=== PATIENT | male | born 1970 | race Caucasian/White ===

== ENCOUNTER 2019-01-05 08:02 | Day surgery (SDC) | payer BC ==
[2019-01-01 10:25] VITALS: BMI 34.0
[~2019-01-05 08:02] MED LIST: LACTATED RINGERS 1,000 ML IV SCH; LIDOCAINE 1% 20 ML VIAL (10MG/ML) FOR IV START INTRADERMA PRN
[2019-01-05] MEDS ORDERED: LACTATED RINGERS 1,000 ML IV ONE (08:45)
--- NOTE | 2019-01-05 08:51 | P.GSHP ---
History of Present Illness H&P Date: 01/05/19 Chief Complaint: GERD This a 48-year-old male with a safer EGD. He's had issues with GERD. Past Medical History Past Medical History: GERD/Reflux History of Any Multi-Drug Resistant Organisms: None Reported Additional Past Surgical History / Comment(s): colonoscopy,vascectomy Past Anesthesia/Blood Transfusion Reactions: No Reported Reaction Smoking Status: Never smoker - Past Family History Mother Family Medical History: No Reported History Father Family Medical History: Cancer Additional Family Medical History / Comment(s): lung Medications and Allergies Home Medications Medication Instructions Recorded Confirmed Type No Known Home Medications 01/01/19 01/05/19 History Allergies Allergy/AdvReac Type Severity Reaction Status Date / Time No Known Allergies Allergy Verified 01/05/19 08:35 Surgical - Exam - General well developed, well nourished, no distress - Eyes PERRL - ENT normal pinna - Neck no masses - Respiratory normal expansion - Cardiovascular Rhythm: regular - Abdomen Abdomen: soft, non tender Assessment and Plan Assessment: GERD. We'll perform EGD.
[2019-01-05 08:52] VITALS: TEMP 97.2
[2019-01-05] MEDS ORDERED: PROPOFOL 10 MG/ML 20 ML VIAL IV ONE (08:56)
--- NOTE | 2019-01-05 09:04 | P.OP ---
Date of Procedure: 01/05/19 Preoperative Diagnosis: GERD Postoperative Diagnosis: Antral gastritis Sliding hiatal hernia Esophagitis Procedure(s) Performed: EGD Anesthesia: MAC Surgeon: Corwin Cartwright Pathology: other (Antrum, esophagus) Condition: stable Disposition: PACU Description of Procedure: The patient's placed on the endoscopy table in the lateral position. He received IV sedation. The gastric was placed oropharynx passed in the esophagus and into the stomach. The scope was then placed through the pylorus. The first and second portion of the duodenum. Normal. The scope was then brought back into the antrum and this was mildly inflamed. A biopsy was performed. Scope was then retroflexed and the remainder of the stomach appeared normal. The GE junction was evaluated there was a moderate size sliding hiatal hernia. The GE junction was at 38 cm. The distal esophagus was grossly inflamed a biopsies performed. The proximal esophagus appeared normal. Scope was withdrawn for patient.
[2019-01-05 09:19] VITALS: RESP 16
[2019-01-05 09:35] VITALS: BP 138/81; PULSE 81
== END 2019-01-05 09:52 | disposition home or self-care (01) ==
LOC: ORWHC2ENDO 08:02
PROVIDERS: ATTEND Surgery
DX: K21.0 Gastro-esophageal reflux disease with esophagitis (principal); K29.50 Unspecified chronic gastritis without bleeding; K44.9 Diaphragmatic hernia without obstruction or gangrene; Z80.1 Family history of malignant neoplasm of trachea, bronchus and lung
CPT/HCPCS: 88305; 43239; J2704

== ENCOUNTER → 2019-01-27 | Outpatient (CLI) | payer BC | LOC: LABWHC1 17:00 | PROVIDERS: ATTEND Surgery | DX: Z01.812 Encounter for preprocedural laboratory examination (principal); K21.0 Gastro-esophageal reflux disease with esophagitis | CPT/HCPCS: 86850; 86900; 86901 ==

== ENCOUNTER 2019-02-03 09:08 | Inpatient (IN) | payer BC ==
[2019-01-26 15:36] VITALS: BMI 33.6
[~2019-02-03 09:08] MED LIST changes: +DEXAMETHASONE SOD PHOSPHATE 10 MG/ML 1 ML VIAL IV ONE; +HEPARIN SODIUM,PORCINE 5,000 UNIT/ML 1 ML VIAL SQ ONE; -LACTATED RINGERS 1,000 ML IV SCH; +MIDAZOLAM 2 MG/2 ML VIAL IV PRN; +ONDANSETRON 4 MG/2 ML VIAL IVP ONE; +SCOPOLAMINE 1.5MG/72HR PATCH TRANSDERM ONE; +ceFAZolin IN SWFI 2 GM/20 ML SYRINGE IVP ONE
[2019-02-03] MEDS: LACTATED RINGERS 1,000 ML IV SCH (10:10)
--- NOTE | 2019-02-03 10:53 | P.GSHP ---
History of Present Illness H&P Date: 02/03/19 Chief Complaint: GERD This a 48-year-old male with a history of GERD.The patient has had long-standing problems with reflux esophagitis. The patient underwent recent EGD is found have evidence of esophagitis. Patient has been well informed on the procedure of laparoscopic Judah fundoplication. The patient is aware the risk of the conversion to the open procedure, risk of injury to the stomach, liver and spleen. The patient is also a risk of recurrent GERD and dysphagia symptoms. The patient understands there is a postoperative diet of full liquids for 2 weeks after surgery. Past Medical History Past Medical History: GERD/Reflux Additional Past Medical History / Comment(s): HIATAL HERNIA History of Any Multi-Drug Resistant Organisms: None Reported Additional Past Surgical History / Comment(s): colonoscopy,vascectomy, EGD 01/05/19 Past Anesthesia/Blood Transfusion Reactions: No Reported Reaction Smoking Status: Never smoker - Past Family History Mother Family Medical History: No Reported History Father Family Medical History: Cancer Additional Family Medical History / Comment(s): lung Medications and Allergies Home Medications Medication Instructions Recorded Confirmed Type Omeprazole 40 mg PO DAILY #60 capsule. 01/05/19 02/03/19 Rx Allergies Allergy/AdvReac Type Severity Reaction Status Date / Time No Known Allergies Allergy Verified 01/26/19 15:28 Surgical - Exam Vital Signs Temp Pulse Resp BP Pulse Ox 98.0 F 70 18 129/75 98 02/03/19 09:52 02/03/19 09:52 02/03/19 09:52 02/03/19 09:52 02/03/19 09:52 - General well developed, well nourished, no distress - Eyes PERRL - ENT normal pinna - Neck no masses - Respiratory normal expansion - Cardiovascular Rhythm: regular - Abdomen Abdomen: soft, non tender Assessment and Plan Assessment: GERD. We'll perform laparoscopic Judah fundal plication.
[2019-02-03] MEDS ORDERED: NEOSTIGMINE 1 MG/ML 10 ML VIAL ONE (11:10)
[2019-02-03] MEDS ORDERED: SUCCINYLCHOLINE CHLORIDE 100 MG/5 ML SYR IV ONE (11:10)
[2019-02-03] MEDS ORDERED: MIDAZOLAM 2 MG/2 ML VIAL ONE (11:10)
[2019-02-03] MEDS ORDERED: PROPOFOL 10 MG/ML 20 ML VIAL IV ONE (11:10)
[2019-02-03] MEDS ORDERED: fentaNYL (PF) 50 MCG/ML 2 ML AMP ONE (11:10)
[2019-02-03] MEDS ORDERED: GLYCOPYRROLATE 0.2 MG/ML 2 ML VIAL ONE (11:10)
[2019-02-03] MEDS ORDERED: KETOROLAC 30 MG/ML 1 ML VIAL ONE (11:10)
[2019-02-03] MEDS ORDERED: LIDOCAINE 1% INJ 10MG/ML (20 ML MDV) ONE (11:10)
[2019-02-03] MEDS ORDERED: ROCURONIUM BROMIDE 10 MG/ML 10 ML VIAL IV ONE (11:10)
[2019-02-03] MEDS ORDERED: BUPIVACAINE (PF) 0.5% 30 ML VIAL SQ ONE (11:30)
[2019-02-03] MEDS ORDERED: LACTATED RINGERS 1,000 ML IV ONE (12:11)
[2019-02-03] MEDS ORDERED: ONDANSETRON 4 MG/2 ML VIAL IVP PRN (13:13)
--- NOTE | 2019-02-03 13:13 | P.OP ---
Date of Procedure: 02/03/19 Preoperative Diagnosis: GERD Postoperative Diagnosis: GERD Procedure(s) Performed: Laparoscopic Judah fundoplication Anesthesia: LETICIA Surgeon: Corwin Cartwright Estimated Blood Loss (ml): 5 Pathology: other Condition: stable Disposition: PACU Description of Procedure: HThe patient was placed on the operating table in the supine position. The patient received general anesthesia. And was placed in dorsal lithotomy position. The patient was prepped and draped in the usual sterile fashion. The patient was noted to have an umbilical hernia. The skin incision sites were anesthetized with 1% local Xylocaine. The skin was incised in the left periumbilical area and then using a blade less 5 mm trocar under direct visualization panel cavity was entered. After adequate insufflation the laparoscope was then placed into the peritoneal cavity. Next a 5 mm trochars placed in the right epigastric position. Another 5 millimeter trocar the right lateral position. Another 5 millimeter trocar in the left lateral position a 5 mm trocar is placed in the left epigastric position. And then the initial 5 mm trocar was exchanged for a 10 mm trocar. The left lateral lobe liver was retracted. The hernia was seen. The crural defect was then dissected using the Harmonic scissors device. A 360 crural dissection was performed the esophagus stomach was reduced back into the peritoneal Cavity. The crural defect was then closed using 2-0 Ethibond suture. Next the fundus of the stomach was mobilized using the Nikolski scissors device. and then a 58-Monegasque bougie dilator was placed oropharynx passed into the esophagus and stomach the fundal plication wrap was then performed by grasping the fundus posteriorly and bringing it around the esophagus and stomach fundoplication was then performed using 2-0 Ethibond suture. Care was taken that the fundal location rested over top of the intra-abdominal esophagus. There was no injury seen to the stomach or esophagus. The dilator was then withdrawn. The abdomen was irrigated there is no bleeding seen. The trochars were then withdrawn and then skin incision sites were closed using 3-0 Monocryl suture Steri-Strips are applied. Patient thought procedure well and sent to recovery room in stable condition.
[2019-02-03] MEDS: HYDROmorphone 0.5 MG/0.5 ML SYRINGE IVP PRN ×2 (13:32→13:42)
--- NOTE | 2019-02-03 15:24 | FL ---
Single contrast esophagram EXAMINATION TYPE: FL esophagus cervic/pharynx DATE OF EXAM: 02/03/2019 3:19 PM COMPARISON: NONE CLINICAL HISTORY: Status post Miguel fundoplication Post OP Judah. 19 secs fluoro. 50ml of Isovue 370 given orally. The patient ingested contrast without difficulty or delay. Noted are changes of Miguel fundoplicatio n. There is no evidence for leak or obstruction. Small amount of residual contrast within the distal esophagus. IMPRESSION: Post-surgical change of Miguel fundoplication without evidence for leak or obstruction.
[2019-02-03] MEDS ORDERED: LORazepam 2 MG/ML INJ IV PRN (15:45)
[2019-02-03] MEDS ORDERED: cloNIDine HCL 0.1 MG TAB PO PRN (15:46)
[2019-02-03] MEDS ORDERED: hydrALAZINE HCL 20 MG/ML 1 ML VIAL IVP PRN (15:46)
[2019-02-03] MEDS: D5-0.45% NACL WITH KCL 20MEQ/L 1,000 ML IV SCH ×2 (16:01→23:52)
[2019-02-03] MEDS: PANTOPRAZOLE 40 MG/10 ML VIAL IVP SCH ×2 (16:01→21:30)
[2019-02-03 16:59] LABS: Albumin 4.2 g/dL (3.5-5.0); Calcium 9.5 mg/dL (8.4-10.2); Potassium 4.6 mmol/L (3.5-5.1); Total Bilirubin 1.1 mg/dL (0.2-1.3); Total Protein 6.8 g/dL (6.3-8.2)
--- NOTE | 2019-02-03 17:15 | CONS ---
CONSULTATION DATE OF SERVICE: 02/03/2019 REASON FOR CONSULTATION: Advice regarding hypertension and other medical issues, requested by Dr. Cartwright. HISTORY OF PRESENT ILLNESS: This 48-year-old gentleman with a past medical history of multiple medical problems, including GERD, DJD, hiatal hernia, colonoscopy, vasectomy, being followed by Dr. Rod Meyers in the outpatient setting, underwent laparoscopic Judah fundoplication for GERD by Dr. Cartwright. Postoperatively the patient is complaining of some gasping sensation in the upper chest. He has elevated blood pressure also. There is no history of any fever, rigor or chills. No history of headache, loss of consciousness, seizures. PAST MEDICAL HISTORY: 1. GERD. 2. DJD. 3. Hiatal hernia. HOME MEDICATIONS: Omeprazole 40 mg daily. ALLERGIES: NONE. FAMILY HISTORY: History of lung disease in the family. SOCIAL HISTORY: Alcohol, especially on the weekends. No history of smoking. REVIEW OF SYSTEMS: ENT: No diminished hearing. No diminished vision. CARDIOVASCULAR SYSTEM: As mentioned earlier. RESPIRATORY SYSTEM: As mentioned earlier. GI: As mentioned earlier. : No dysuria or retention. NERVOUS SYSTEM: No numbness, weakness. ALLERGY/IMMUNOLOGY: No asthma, hayfever. MUSCULOSKELETAL: As mentioned earlier. HEMATOLOGY/ONCOLOGY: No history of anemia. ENDOCRINE: No history of diabetes, hypothyroidism. CONSTITUTIONAL: As mentioned earlier. DERMATOLOGY: Negative. RHEUMATOLOGY: Negative. PSYCHIATRY: As mentioned earlier. PHYSICAL EXAMINATION: Patient is alert and oriented x3. Pulse 75, blood pressure 155/106, respiration 20, temperature 98 degrees, pulse ox 94% on room air. HEENT: Conjunctivae normal. Oral mucosa moist. NECK: No jugular venous distention. No carotid bruit. No lymph node enlargement. CARDIOVASCULAR SYSTEM: S1, S2 muffled. RESPIRATORY SYSTEM: Breath sounds diminished at the bases. No rhonchi. No crackles. ABDOMEN: Soft. Status post surgery. No guarding. No rigidity. No mass palpable. LEGS: No edema. No swelling. NERVOUS SYSTEM: Higher functions as mentioned earlier. Moves all 4 limbs. No focal motor or sensory deficit. LYMPHATICS: No lymph node palpable in neck, axillae or groin. SKIN: No ulcer, rash, bleeding. JOINTS: No active deforming arthropathy. LABS: Not available. ASSESSMENT: 1. Gastroesophageal reflux disease, status post laparoscopic Judah fundoplication. 2. Hypertension. 3. History of degenerative joint disease. 4. History of hiatal hernia. 5. History of ETOH weekends. 6. History of colonoscopy. 7. History of vasectomy. 8. History of esophagogastroduodenoscopy. RECOMMENDATIONS AND DISCUSSION: In this 48-year-old gentleman who presented with multiple medical issues, at this time I recommend to continue current management, continue with symptomatic treatment. I would recommend incentive spirometry, DVT prophylaxis. I would also recommend p.r.n. clonidine and hydralazine. Otherwise, IV Protonix. Will follow the patient closely. I recommend follow-up labs also. The patient may be asked to follow up with Dr. Meyers closely. Thank you, Dr. Cartwright, for letting us participate in the care of this patient. MMNILOL / BENEDICTON: [id number] /
[2019-02-03] MEDS: FAMOTIDINE 20 MG/2 ML VIAL IV SCH (20:22)
[2019-02-03] MEDS: HYDROmorphone 1 MG/ML 1 ML SYRINGE IVP PRN (20:27)
[2019-02-04] MEDS: HYDROmorphone 1 MG/ML 1 ML SYRINGE IVP PRN ×3 (00:48→08:50)
[2019-02-04 01:28] VITALS: TEMP 98.1
[2019-02-04] MEDS: LACTATED RINGERS 1,000 ML IV SCH (01:57)
[2019-02-04] MEDS: D5-0.45% NACL WITH KCL 20MEQ/L 1,000 ML IV SCH (05:00)
[2019-02-04 07:44] VITALS: BP 127/86; PULSE 69; RESP 14
[2019-02-04 08:27] LABS: ALT 80 U/L (21-72); AST 55 U/L (17-59); Alkaline Phosphatase 41 U/L (38-126); Anion Gap 10 mmol/L; Blood Urea Nitrogen 17 mg/dL (9-20); Calcium 8.9 mg/dL (8.4-10.2); Carbon Dioxide 25 mmol/L (22-30); Chloride 103 mmol/L (98-107); Glucose 122 mg/dL (74-99); Potassium 4.4 mmol/L (3.5-5.1); Sodium 138 mmol/L (137-145); Total Bilirubin 1.4 mg/dL (0.2-1.3); Total Protein 6.6 g/dL (6.3-8.2)
[2019-02-04] MEDS: FAMOTIDINE 20 MG/2 ML VIAL IV SCH (08:50)
[2019-02-04 08:51] LABS: Basophils % (A) 0 %; Eosinophils % (A) 0 %; HCT 47.4 % (39.0-53.0); HGB 15.9 gm/dL (13.0-17.5); Lymphocytes # (A) 1.5 k/uL (1.0-4.8); Lymphocytes % (A) 16 %; MCH 33.1 pg (25.0-35.0); MCHC 33.6 g/dL (31.0-37.0); MCV 98.7 fL (80.0-100.0); Mean Platelet Volume 6.2; Monocytes # (A) 0.6 k/uL (0-1.0); Monocytes % (A) 7 %; Neutrophils # (A) 7.1 k/uL (1.3-7.7); Neutrophils % (A) 75 %; Platelet Count 224 k/uL (150-450); RDW 12.5 % (11.5-15.5); WBC 9.6 k/uL (3.8-10.6)
[2019-02-04] MEDS ORDERED: ENOXAPARIN 40 MG/0.4 ML SYRINGE SQ SCH (09:00)
[2019-02-04] MEDS: PANTOPRAZOLE 40 MG/10 ML VIAL IVP SCH (10:45)
[2019-02-04] MEDS ORDERED: HYDROcodone/APAP 15 ML SOLUTION PO PRN (11:09)
--- NOTE | 2019-02-04 11:33 | P.DS ---
Providers Date of admission: 02/03/19 09:08 Expected date of discharge: 02/04/19 Attending physician: Corwin Cartwright Consults: 02/03/19 13:13 Consult Physician Routine Consulting Provider: Neris Noe Consult Reason/Comments: Rohith management Do you want consulting provider notified?: Yes Primary care physician: [facility]ouse Hospital Course: 48-year-old male who underwent laparoscopic Judah fundoplication secondary to GERD. Patient is doing well postoperatively without any immediate complications. Postop esophagram completed negative for leak or obstruction. Patient is tolerating clear liquids. Patient is stable for discharge home today. He is to follow up outpatient with Dr. Cartwright. Please see EMR for further hospital course details. Discharge diagnosis 1. GERD status post Judah fundoplication The above dictated assessment and findings were discussed with Dr. Cartwright. The impression and plan of care have been directed as dictated. Kathi Soria, nurse practitioner, acting as scribe for Dr. Cartwright. Patient Condition at Discharge: Stable Plan - Discharge Summary Discharge Rx Participant: No New Discharge Prescriptions: New HYDROcodone/APAP [[place] Elixir 7.5-325Mg/15Ml] 15 ml PO Q6HR PRN 3 Days #180 ml PRN Reason: Pain No Action Omeprazole 40 mg PO DAILY #60 capsule. Discharge Medication List Omeprazole 40 mg PO DAILY #60 capsule. 01/05/19 [Rx] HYDROcodone/APAP [[place] Elixir 7.5-325Mg/15Ml] 15 ml PO Q6HR PRN 3 Days #180 ml 02/04/19 [Rx] Follow up Appointment(s)/Referral(s): Corwin Cartwright MD [STAFF PHYSICIAN] - 1 Week Activity/Diet/Wound Care/Special Instructions: Full liquid diet for [address] while taking [place] No lifting over 10 pounds You may shower. No soaking or tub baths Very light activity until you are reevaluated at your follow up appointment with your surgeon Discharge Disposition: HOME SELF-CARE
--- NOTE | 2019-02-04 21:18 | PN ---
PROGRESS NOTE DATE OF SERVICE: 02/04/2019 HISTORY: This 48-year-old gentleman who was admitted after GERD, had a Judah fundoplication. No chest pain. No palpitations. No fever. Patient improved significantly. EXAM: GENERAL: Alert and oriented times three. VITAL SIGNS: Pulse 69, blood pressure 127/86, respiratory 14, temperature 98.4, pulse ox 98% on room air. HEENT is conjunctivae normal. NECK is no jugular venous distention. CARDIOVASCULAR: S1, S2 muffled. RESPIRATORY: Breath sounds diminished at the bases. A few scattered rhonchi and crackles. ABDOMEN: Soft and nontender. CENTRAL NERVOUS SYSTEM: No focal deficits. LABS: CBC within normal limits. Sodium 130, potassium 4.4, glucose 122. ASSESSMENT: 1. Gastroesophageal reflux disease, status post laparoscopic Judah fundoplication. 2. Hypertension. 3. History of degenerative joint disease. 4. History of hiatal hernia. 5. History EtOH weekends. 6. History of colonoscopy. 7. History of vasectomy. 8. History of EGD. RECOMMENDATIONS AND DISCUSSION: Recommend to continue current medications, continue with monitoring, symptomatic treatment. Otherwise at this time, incentive spirometry. Closely follow with the primary physician in the outpatient setting. Further recommendations to follow. MMODL / IJN: [id number] /
== END 2019-02-04 13:35 | disposition home or self-care (01) | DRG 328 ==
LOC: 2ORMAIN 09:08 → 4SSUR 13:41
PROVIDERS: ADMIT Surgery; ATTEND Surgery
PROC: 0DV44ZZ Restriction of Esophagogastric Junction, Percutaneous Endoscopic Approach (ICD-10-PCS; principal; 2019-02-03 10:45)
DX: K21.0 Gastro-esophageal reflux disease with esophagitis (principal); K44.9 Diaphragmatic hernia without obstruction or gangrene; I10 Essential (primary) hypertension; M19.90 Unspecified osteoarthritis, unspecified site; Z79.899 Other long term (current) drug therapy; Z80.1 Family history of malignant neoplasm of trachea, bronchus and lung
CPT/HCPCS: 74210; 80053; 85025; 86850; 86900; 86901